=== PATIENT | female | born 1985 | race African-American/Black ===

== ENCOUNTER 2016-06-11 09:04 | Emergency (ER) | payer SELFPAY ==
[2016-06-11 09:50] VITALS: BP 137/85
--- NOTE | 2016-06-11 10:08 | RAD ---
Three-view right ankle radiographs 06/11/2016 Clinical history: Right ankle pain post injury last night. AP, lateral and oblique digital radiographs of the right ankle were obtained. The right ankle mortise is intact. Soft tissue swelling surrounds the lateral malleolus of the right ankle. No fracture or dislocation is seen. Mild enthesophyte formation is seen involving the posterior right calcaneus. Impression: No fracture or dislocation of the right ankle is seen.
--- NOTE | 2016-06-11 11:43 | PHYS DOC ---
Past Medical History Past Medical History: No Pertinent History Past Surgical History: , Tubal ligation Alcohol Use: Occasionally Drug Use: None Adult General Chief Complaint Chief Complaint: ANKLE PROBLEM HPI HPI Patient is a 30 year old female who presents with mild right ankle pain that began yesterday after falling down 2 steps. Patient denies any loss of consciousness. Review of Systems Review of Systems Constitutional: Denies fever or chills [] Musculoskeletal: Right ankle pain Integument: Denies rash or skin lesions [] Neurologic: Denies headache, focal weakness or sensory changes [] Endocrine: Denies polyuria or polydipsia [] Allergies Allergies Allergies Coded Allergies Type Severity Reaction Last Updated Verified ibuprofen Allergy Intermediate oral swelling 12/19/14 No Physical Exam Physical Exam Constitutional: Well developed, well nourished, no acute distress, non-toxic appearance. [] Skin: Warm, dry, no erythema, no rash. [] Back: No tenderness, no CVA tenderness. [] Extremities: Right ankle with mild amount of soft tissue swelling, tenderness diffusely throughout the right ankle. Full range of motion to the right ankle. Adequate flexion and extension of the right foot. +2 right pedal pulse. Cap refill less than 2 seconds the right lower extremity, sensation intact to the right lower extremity. Neurologic: Alert and oriented X 3, normal motor function, normal sensory function, no focal deficits noted. [] Psychologic: Affect normal, judgement normal, mood normal. [] Current Patient Data Vital Signs Vital Signs Date Time Temp Pulse Resp B/P Pulse Ox O2 Delivery O2 Flow Rate FiO2 06/11/16 09:50 98.0 81 18 100 Room Air 98.0 EKG EKG [] Radiology/Procedures Radiology/Procedures [] Course & Med Decision Making Course & Med Decision Making Pertinent Labs and Imaging studies reviewed. (See chart for details) Patient is in the ED with right ankle pain after falling down 2 steps yesterday , right ankle x-ray interpreted by radiologist is noted for no acute findings. Air cast was applied to the right ankle by the fuel cell battery technician, neurovascular exam done by me as well as cap refill less than 2 seconds is normal. Ice elevation encouraged. Medrol Dosepak and Tylenol 3 for pain, patient is allergic to ibuprofen. Follow-up with open one week. Dragnicolle Disclaimer Dragon Disclaimer This electronic medical record was generated, in whole or in part, using a voice recognition dictation system. Departure Departure Impression: Primary Impression: Right ankle sprain Additional Impression: Fall down steps Disposition: 01 HOME, SELF-CARE Condition: STABLE Referrals: NO PCP (PCP) NICOLE ROGERS MD Follow-up with him in one week if pain continues Patient Instructions: Ankle Sprain, Acute, with Phase I Rehab-SportsMed Additional Instructions: You were seen for right ankle sprain, ice elevate the extremity, wear the air cast as needed. You can put weight to the right lower extremity as tolerated. Follow-up with the provided orthopedic doctor in one week if pain continues. Scripts Acetaminophen With Codeine (Tylenol With Codeine #3 Tablet)1 Each Tablet1 Tab PO PRN Q4HRS PRN PAIN #30 TAB Prov:JOSE J BLAIR APRN 06/11/16 Prednisone 50 Mg Tablet1 Tab PO DAILY #5 TAB Prov:JOSE J BLAIR APRN 06/11/16 Problem Qualifiers Primary Impression: Right ankle sprain Encounter type: initial encounter Involved ligament of ankle: unspecified ligament Qualified Code: S93.401A - Sprain of unspecified ligament of right ankle, initial encounter Additional Impression: Fall down steps Encounter type: initial encounter Qualified Code: W10.8XXA - Fall (on) (from ) other stairs and steps, initial encounter JOSE J BLAIR APRN Jun 11, 2016 11:43
[2016-06-11] MEDS ORDERED: PRED50TA PO (11:46)
[2016-06-11] MEDS ORDERED: ACET-704 PO (11:46)
== END 2016-06-11 11:54 | disposition home or self-care (01) ==
LOC: ER 09:04
DX: S93.401A Sprain of unspecified ligament of right ankle, initial encounter (principal); Z88.6 Allergy status to analgesic agent; W10.8XXA Fall (on) (from) other stairs and steps, initial encounter; Y93.89 Activity, other specified; Y92.89 Other specified places as the place of occurrence of the external cause; Y99.8 Other external cause status
CPT/HCPCS: 73610; 99284; L4350